=== PATIENT | male | born 1995 | race Two or more races ===

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

== ENCOUNTER 2017-02-16 08:22 | Emergency (ER) | payer MEDICAID ==
[~2017-02-16] VITALS: Ht 172.7 cm; Wt 66.2 kg
[2017-02-16 08:41] VITALS: BP 122/71
== END 2017-02-16 09:01 | disposition home or self-care (01) ==
LOC: ER 08:24
DX: J20.9 Acute bronchitis, unspecified (principal)
CPT/HCPCS: 71020

== ENCOUNTER 2017-02-16 18:05 | Emergency (ER) | payer MEDICAID ==
[~2017-02-16] VITALS: Ht 172.7 cm; Wt 72.6 kg
[2017-02-16 18:14] VITALS: BP 125/74
== END 2017-02-16 19:25 | disposition home or self-care (01) ==
LOC: ER 18:05
DX: R07.9 Chest pain, unspecified (principal); Z90.49 Acquired absence of other specified parts of digestive tract
CPT/HCPCS: 93005

== ENCOUNTER 2017-06-03 16:36 | Emergency (ER) | payer MEDICAID ==
[~2017-06-03] VITALS: Ht 167.6 cm; Wt 69.4 kg
[2017-06-03 16:50] VITALS: BP 116/60
== END 2017-06-03 19:22 | disposition home or self-care (01) ==
LOC: ER 16:36
DX: S20.211A Contusion of right front wall of thorax, initial encounter (principal); R22.2 Localized swelling, mass and lump, trunk; W17.89XA Other fall from one level to another, initial encounter; Y93.89 Activity, other specified; Y99.8 Other external cause status; Y92.89 Other specified places as the place of occurrence of the external cause
CPT/HCPCS: 71101